=== PATIENT | male | born 1960 | race Caucasian/White ===

== ENCOUNTER 2017-12-02 17:43 | Emergency (ER) | payer BC ==
[~2017-12-02] VITALS: Ht 172.7 cm; Wt 93.2 kg
[2017-12-02 17:52] VITALS: Ht 172.7 cm; Wt 93.2 kg
[2017-12-02] MEDS ORDERED: ULTRAM50 MG PO (17:53)
[2017-12-02 18:35] LABS: BASOPHILS 0.5 % (0-2); EOSINOPHILS 2.1 % (0-7); HEMOGLOBIN 14.3 g/dL (13.5-17.5); IMMATURE GRANULOCYTES 0.5 % (0-5); LYMPHOCYTES 39.3 % (15-50); MCH 30.4 pg (26.0-34.0); MCV 89.2 fL (80.0-100.0); MEAN PLATELET VOLUME 11.6 fL (7.4-10.4); MONOCYTES 9.3 % (2-11); NEUTROPHILS 48.3 % (40-80); PLATELET COUNT 212 10x3/uL (130-400); RBC 4.71 10x6/uL (4.20-6.10); RDW 13.2 % (11.5-14.5); WBC 10.1 10x3/uL (4.8-10.8)
[2017-12-02 19:15] LABS: ALKALINE PHOSPHATASE 46 U/L (46-116); ALT (SGPT) 22 U/L (10-68); BILIRUBIN - TOTAL 0.53 mg/dL (0.2-1.3); CALC OSMOLALITY 290 mosm/kg (275-300); CALCIUM 8.9 mg/dL (8.5-10.1); CARBON DIOXIDE 26.1 mmol/L (21.0-32.0); CHLORIDE - SERUM 103 mmol/L (98-107); CREATININE - SERUM 1.2 mg/dL (0.6-1.3); GLUCOSE 208 mg/dL (74-106); POTASSIUM - SERUM 3.5 mmol/L (3.5-5.1); PROTEIN - SERUM 7.5 g/dL (6.4-8.2); SODIUM 142 mmol/L (136-145); UREA NITROGEN 17 mg/dL (7-18); eGFR NON AFRICAN AMERICAN 66 mL/min (90-120)
[2017-12-02 19:28] LABS: CKMB 1.7 U/L (0.0-3.6); CREATINE KINASE 60 UL (21-232)
[2017-12-02 19:31] LABS: TROPONIN-I < 0.017 ng/mL (0.000-0.060)
[2017-12-02] MEDS ORDERED: TOPROL XL50 MG PO (19:36)
[2017-12-02] MEDS ORDERED: GLUCOPHAGE XR750 MG PO (19:36)
[2017-12-02 21:37] VITALS: BP 169/90
[2017-12-03] MEDS ORDERED: NORVASC5 MG PO (17:38)
== END 2017-12-02 21:37 | disposition home or self-care (01) ==
LOC: D.ER 17:43
PROVIDERS: Emergency Medicine
DX: E10.9 Type 1 diabetes mellitus without complications (principal); E86.0 Dehydration; I10 Essential (primary) hypertension; R35.0 Frequency of micturition; R35.8 Other polyuria; R00.0 Tachycardia, unspecified

== ENCOUNTER 2017-12-03 13:15 | Emergency (ER) | payer MEDICAID ==
[~2017-12-03] VITALS: Ht 172.7 cm; Wt 93.6 kg
[~2017-12-03 13:15] MED LIST: GLUCOPHAGE XR750 MG PO; TOPROL XL50 MG PO; ULTRAM50 MG PO
[2017-12-03 13:24] VITALS: Ht 172.7 cm; Wt 93.6 kg
[2017-12-03 13:53] LABS: BASOPHILS 0.5 % (0-2); HEMATOCRIT 41.3 % (42.0-54.0); IMMATURE GRANULOCYTES 0.3 % (0-5); LYMPHOCYTES 19.2 % (15-50); MCH 30.4 pg (26.0-34.0); MCHC 33.9 g/dL (31.0-37.0); MCV 89.8 fL (80.0-100.0); MEAN PLATELET VOLUME 11.2 fL (7.4-10.4); MONOCYTES 9.3 % (2-11); NEUTROPHILS 69.7 % (40-80); PLATELET COUNT 204 10x3/uL (130-400); RDW 13.3 % (11.5-14.5); WBC 10.4 10x3/uL (4.8-10.8)
[2017-12-03 14:23] LABS: ALBUMIN 3.8 g/dL (3.4-5.0); ALKALINE PHOSPHATASE 42 U/L (46-116); ALT (SGPT) 21 U/L (10-68); BILIRUBIN - TOTAL 0.64 mg/dL (0.2-1.3); CALC OSMOLALITY 276 mosm/kg (275-300); CALCIUM 8.7 mg/dL (8.5-10.1); CARBON DIOXIDE 27.7 mmol/L (21.0-32.0); CHLORIDE - SERUM 103 mmol/L (98-107); POTASSIUM - SERUM 3.8 mmol/L (3.5-5.1); PROTEIN - SERUM 7.3 g/dL (6.4-8.2); SODIUM 138 mmol/L (136-145); TROPONIN-I < 0.017 ng/mL (0.000-0.060); UREA NITROGEN 13 mg/dL (7-18); eGFR NON AFRICAN AMERICAN 81 mL/min (90-120)
[2017-12-03 14:28] LABS: GLUCOSE 119 mg/dL (74-106)
[2017-12-03] MEDS ORDERED: NORVASC5 MG PO (17:38)
[2017-12-03 17:52] VITALS: BP 155/89
== END 2017-12-03 17:53 | disposition home or self-care (01) ==
LOC: D.ER 13:15
PROVIDERS: Emergency Medicine
DX: I10 Essential (primary) hypertension (principal); E11.9 Type 2 diabetes mellitus without complications